=== PATIENT | male | born 1965 | race African-American/Black ===

== ENCOUNTER 2016-03-30 19:16 | Emergency (ER) | payer SELFPAY ==
[2016-03-30] MEDS ORDERED: Ondansetron INJ* 2 MG/ML VIAL IV ONE ×2 (20:05→21:56)
[2016-03-30] MEDS ORDERED: NS 0.9% 1000 ML* 1,000 ML IV ONE ×2 (20:05→22:20)
[2016-03-30] MEDS ORDERED: Ketorolac INJ* 30 MG/ML 1 ML VIAL IV PUSH ONE (20:42)
[2016-03-30 20:48] LABS: Hematocrit 45 % (42-52); Hemoglobin 15.3 g/dl (14.0-18.0); Mean Corpuscular HGB Conc 34 g/dl (31-36); Mean Corpuscular Hemoglobin 30 pg (27-31); Mean Corpuscular Volume 90 fL (80-94); Mean Platelet Volume 8 um3 (7.4-10.4); Red Blood Count 5.01 10^6/ul (4.0-5.4); Red Cell Distribution Width 13 % (10.5-15); White Blood Count 4.9 10^3/ul (3.5-10.8)
[2016-03-30 21:03] LABS: Albumin 4.3 g/dL (3.2-5.2); BUN/Creatinine Ratio 7.5 (8-20); Calcium 9.4 mg/dL (8.6-10.3); EGFR African American 73.8 (>60); EGFR Non-African American 57.4 (>60); Globulin 3.6 g/dL (2-4); Magnesium 1.6 mg/dL (1.9-2.7); Potassium 3.6 mmol/L (3.5-5.0); Total Bilirubin 1.6 mg/dL (0.2-1.0); Total Protein 7.9 g/dL (6.4-8.9)
[2016-03-30] MEDS ORDERED: Al Hydrox/Mg Hydrox/Simet LIQ* 30 ML UDC PO ONE (21:55)
[2016-03-30] MEDS ORDERED: SCOP/HYOS/ATR/PB(NF) 10 ML UDC PO ONE (21:55)
[2016-03-30] MEDS ORDERED: Lidocaine 2% VISCOUS* 15 ML UDC PO ONE (21:55)
--- NOTE | 2016-03-30 22:15 | RAD ---
Indication: Upper abdominal pain, right upper quadrant pain. Real-time sonography of the right upper quadrant was performed. The liver measures 13 cm in length. No focal lesions or intrahepatic ductal dilatation is noted. Common duct measures 3 mm. The gallbladder is partially contracted. Wall thickening. There is suggestion of a cholesterol polyp or nonshadowing calculi in the nondependent portion of the gallbladder measuring up to 4 mm. No evidence of sonographic Serna's sign is noted. Right kidney measures 10.0 x 4.5 x 5.9 cm with no hydronephrosis. The pancreas is limited in evaluation. Aorta and inferior vena cava are unremarkable. IMPRESSION: Partially contracted gallbladder with likely polyp in the gallbladder. No biliary duct dilatation is noted.
[2016-03-30] MEDS ORDERED: Morphine INJ* 4 MG/ML 1 ML CARPUJECT IV ONE (22:20)
[2016-03-30] MEDS ORDERED: Iohexol 300* (CONTRAST) 10 ML SDV IV ONE (23:31)
--- NOTE | 2016-03-30 23:42 | ED ---
Tc Felder Karl, scribed for Matheus Ji MD on 03/30/16 at 2020 . Abdominal Pain/Male - HPI Summary HPI Summary: Pt is a 50 y/o male that presents to the ED c/o 8 RUQ abd pain that began last night at approx 18:00 and has worsened since. Pt reported that he began having abd pain at approx 18:00 yesterday and before going to sleep he hairston vomiting. Pt stated that the vomiting and abd pain have been constant and he has began to vomit blood. In addition to abd pain and hematemesis the pt reported nausea, hematuria, fever, and some diarrhea earlier today. Pt stated that he has not eaten or drank anything all day because he continuously vomits whatever he ingests. Pt stated that he was here before with gallbladder polyps approx 1 year ago. Pt stated he feels "very dehydrated." Hx: gallbladder polyps. - History of Current Complaint Chief Complaint: EDAbdPain Stated Complaint: GALL BLADDER/ ABD PAIN Time Seen by Provider: 03/30/16 20:04 Hx Obtained From: Patient Onset/Duration: Gradual Onset, Lasting Hours, Worse Since Timing: Constant Severity Initially: Moderate Severity Currently: Moderate Pain Intensity: 8 - abd pain Pain Scale Used: 0-10 Numeric Location: Discrete At: RUQ Associated Signs And Symptoms: Positive: Fever, Urinary Symptoms - hematuria, Decreased Appetite, Nausea, Vomiting, Diarrhea - Allergies/Home Medications Allergies/Adverse Reactions: Allergies Allergy/AdvReac Type Severity Reaction Status Date / Time No Known Allergies Allergy Verified 02/02/13 17:58 PMH/Surg Hx/FS Hx/Imm Hx Infectious Disease History: No Infectious Disease History: Denies: Traveled Outside the [place] in Last 30 Days - Family History Known Family History: Negative: Cardiac Disease, Hypertension, Diabetes - Social History Alcohol Use: Daily Alcohol Amount: 7-8/day Substance Use Type: Reports: Marijuana Smoking Status (MU): Light Every Day Tobacco Smoker Review of Systems Positive: Fever Eyes: Negative ENT: Negative Cardiovascular: Negative Respiratory: Negative Positive: Abdominal Pain, Vomiting - hematemesis, Diarrhea, Nausea Positive: hematuria Musculoskeletal: Negative Skin: Negative Neurological: Negative Psychological: Normal All Other Systems Reviewed And Are Negative: Yes Physical Exam Triage Information Reviewed: Yes Vital Signs On Initial Exam: Initial Vitals Temp Pulse Resp BP Pulse Ox 98.8 F 81 22 147/95 100 03/30/16 19:53 03/30/16 19:53 03/30/16 19:53 03/30/16 19:53 03/30/16 19:53 Vital Signs Reviewed: Yes Appearance: Positive: Pain Distress - mild discomfort, Thin Skin: Positive: Warm Head/Face: Positive: Normal Head/Face Inspection Eyes: Positive: PEYTON ENT: Positive: Hearing grossly normal Neck: Positive: Supple Respiratory/Lung Sounds: Positive: Clear to Auscultation, Breath Sounds Present Cardiovascular: Positive: Normal Abdomen Description: Positive: No Organomegaly, Soft, Other: - mild upper abd tenderness. Negative: CVA Tenderness (R), CVA Tenderness (L) Bowel Sounds: Positive: Present Musculoskeletal: Positive: Strength/ROM Intact Neurological: Positive: Sensory/Motor Intact, Alert, Oriented to Person Place, Time, Normal Gait Psychiatric: Positive: Affect/Mood Appropriate AVPU Assessment: Alert Diagnostics - Vital Signs Vital Signs Temp Pulse Resp BP Pulse Ox 03/30/16 19:53 98.8 F 81 22 147/95 100 - Laboratory Lab Results: Lab Results 03/30/16 03/30/16 Range/Units 20:35 20:35 WBC 4.9 (3.5-10.8) 10^3/ul RBC 5.01 (4.0-5.4) 10^6/ul Hgb 15.3 (14.0-18.0) g/dl Hct 45 (42-52) % MCV 90 (80-94) fL MCH 30 (27-31) pg MCHC 34 (31-36) g/dl RDW 13 (10.5-15) % Plt Count 320 (150-450) 10^3/ul MPV 8 (7.4-10.4) um3 Neut % (Auto) 70.1 (38-83) % Lymph % (Auto) 21.9 L (25-47) % Lander % (Auto) 6.7 (1-9) % Eos % (Auto) 0.6 (0-6) % Baso % (Auto) 0.7 (0-2) % Absolute Neuts (auto) 3.4 (1.5-7.7) 10^3/ul Absolute Lymphs (auto) 1.1 (1.0-4.8) 10^3/ul Absolute Monos (auto) 0.3 (0-0.8) 10^3/ul Absolute Eos (auto) 0 (0-0.6) 10^3/ul Absolute Basos (auto) 0 (0-0.2) 10^3/ul Absolute Nucleated RBC 0 10^3/ul Nucleated RBC % 0.1 Sodium 134 (133-145) mmol/L Potassium 3.6 (3.5-5.0) mmol/L Chloride 102 (101-111) mmol/L Carbon Dioxide 23 (22-32) mmol/L Anion Gap 9 (2-11) mmol/L BUN 10 (6-24) mg/dL Creatinine 1.33 H (0.67-1.17) mg/dL Est GFR ( Amer) 73.8 (>60) Est GFR (Non-Af Amer) 57.4 (>60) BUN/Creatinine Ratio 7.5 L (8-20) Glucose 111 H (70-100) mg/dL Calcium 9.4 (8.6-10.3) mg/dL Magnesium 1.6 L (1.9-2.7) mg/dL Total Bilirubin 1.60 H (0.2-1.0) mg/dL AST 15 (13-39) U/L ALT 12 (7-52) U/L Alkaline Phosphatase 58 (34-104) U/L Total Protein 7.9 (6.4-8.9) g/dL Albumin 4.3 (3.2-5.2) g/dL Globulin 3.6 (2-4) g/dL Albumin/Globulin Ratio 1.2 (1-3) Result Diagrams: 03/30/16 20:35 03/30/16 20:35 Lab Statement: Any lab studies that have been ordered have been reviewed, and results considered in the medical decision making process. - CT CT Abd/Pelvis w/ [CT] CT Interpretation: Positive (See Comments) CT Interpretation Completed By: Radiologist - FINDINGS: The visualized lung bases are clear. There are fatty changes of the liver. The upper abdominal visceral organs are otherwise unremarkable. The stomach is moderately distended with retained contrast. There is normal transit of constrast to the colonwithout bowel distension. The appendix is normal. There is mild circumferential thickening of the transverse, descending and proximal to mid sigmoid colon compatible with nonspecific colitis. There are a few diverticula noted in the left colon without evidence of acute diverticulitis. No free air, free fluid or locuted collections. - Additional Comments Diagnostic Additional Comments: US Gallbladder IMPRESSION: Partially contracted gallbladder with likely polyp in the gallbladder. No biliary duct dilatation is noted. Re-Evaluation - Re-Evaluation First Eval Re-Evaluation Time: 22:20 Change: Improved - mildly Comment: Discussed results of imaging study with the pt and plan for further treatment. Second Eval Re-Evaluation Time: 00:45 Change: Unchanged Comment: Discussed results of secondary imaging study with the pt and plan for further treatment. Third Eval Change: Improved Abdominal Pain Fem Course/Dx - Diagnoses Provider Diagnoses: Abdominal pain Discharge - Discharge Plan Condition: Improved Disposition: HOME Prescriptions: Famotidine TAB* [Pepcid TAB*] 20 mg PO BID #30 tab Patient Education Materials: Diet for Ulcers and Gastritis (ED), Acute Abdominal Pain (ED), Abdominal Pain (ED) Referrals: No Primary Care Phys,NOPCP [Primary Care Provider] - Additional Instructions: Please follow up with your primary care provider. Return to the emergency department for changing or worsening symptoms. The documentation as recorded by the Tc william Karl accurately reflects the service I personally performed and the decisions made by me, Matheus Ji MD.
[2016-03-31] MEDS ORDERED: Metoclopramide IV* 5 MG/ML 2 ML VIAL IV ONE (00:44)
[2016-03-31] MEDS ORDERED: Lidocaine 2% VISCOUS* 15 ML UDC PO ONE (01:01)
[2016-03-31] MEDS ORDERED: Al Hydrox/Mg Hydrox/Simet LIQ* 30 ML UDC PO ONE (01:01)
[2016-03-31] MEDS ORDERED: SCOP/HYOS/ATR/PB(NF) 10 ML UDC PO ONE (01:01)
[2016-03-31] MEDS ORDERED: Famotidine TAB* 20 MG PO ONE (01:13)
[2016-03-31 01:27] VITALS: BP 144/84
--- NOTE | 2016-03-31 07:33 | RAD ---
CLINICAL HISTORY: Upper abdominal pain COMPARISON: February 02, 2013 TECHNIQUE: Multiple contiguous axial CT scans were obtained of the abdomen and pelvis after the administration of intravenous contrast. Coronal and sagittal multiplanar reformations are submitted for review. Oral contrast was administered. Delayed images were obtained through the abdomen FINDINGS: LUNG BASES: The lung bases are clear. LIVER: The liver is diffusely low in attenuation compared to the spleen. There are no focal hepatic parenchymal masses. BILE DUCTS: There is no intrahepatic or extrahepatic biliary dilatation. GALLBLADDER: The gallbladder is normal, without pericholecystic inflammatory change. PANCREAS: The pancreas is normal, without mass or ductal dilatation. SPLEEN: Normal in size and appearance. UPPER GI TRACT: Evaluation of the gastrointestinal tract is limited by incomplete gastric distention. The upper GI tract is unremarkable. SMALL BOWEL AND MESENTERY: The small bowel is normal in contour, course, and caliber. There is no obstruction or dilatation. COLON: There is mucosal thickening of the transverse and proximal descending colon There are scattered diverticula of the descending and sigmoid colon. There is a tubular, vermiform, hollow viscus that is blind ending, and originates from the cecum, consistent with a normal appendix. There is no periappendiceal inflammatory change. This is best seen on coronal images 41 through 55 ADRENALS: Normal bilaterally. KIDNEYS: The kidneys are normal in shape, size, contour, and axis. There is no hydronephrosis or nephrolithiasis. BLADDER: The bladder is collapsed and is not well evaluated. PELVIC ORGANS: The prostate gland is normal. The seminal vesicles are symmetric. AORTA: The aorta is normal. IVC: Unremarkable LYMPH NODES: There is no lymphadenopathy by size criteria. ABDOMINAL WALL: There is no evidence for abdominal wall hernia. BONES AND SOFT TISSUES: There are mild diffuse degenerative changes. OTHER: None IMPRESSION: 1. MUCOSAL THICKENING OF THE TRANSVERSE AND PROXIMAL DESCENDING COLON COLITIS. 2. SCATTERED DIVERTICULA OF THE DISTAL COLON. 3. NORMAL APPENDIX. 4. FATTY INFILTRATION OF LIVER.
== END 2016-03-31 01:26 | disposition home or self-care (01) ==
LOC: ED 19:16
DX: R10.11 Right upper quadrant pain (principal); R11.10 Vomiting, unspecified; R11.2 Nausea with vomiting, unspecified; K92.0 Hematemesis; K76.0 Fatty (change of) liver, not elsewhere classified
CPT/HCPCS: 36415; 74177; 76705; 80053; 83735; 85025; 86703; 96361; 96374; 96375; 99285; A9270-GY; J1885; J2270; J2405; J2765; Q9967